=== PATIENT | male | born 1985 | race Caucasian/White ===

== ENCOUNTER 2020-08-06 08:23 | Inpatient (IN) | payer MEDICAID ==
[2020-07-31 16:06] LABS: BASOPHILS % (AUTO) 0.5 % (0-1); EOSINOPHILS # (AUTO) 0.1 X10'3 (0-0.9); LYMPHOCYTES # (AUTO) 1.7 X10'3 (1.1-4.8); LYMPHOCYTES % (AUTO) 24.8 % (21-51); MEAN CORPUSCULAR HEMOGLOBIN 24.4 PG (27.0-31.0); MEAN CORPUSCULAR HGB CONC 31.8 g/dL (33.0-36.5); MEAN CORPUSCULAR VOLUME 76.5 FL (78-98); MEAN PLATELET VOLUME 7.9 FL (7.4-10.4); MONOCYTES # (AUTO) 0.5 X10'3 (0-0.9); NEUTROPHILS # (AUTO) 4.6 X10'3 (1.8-7.7); NEUTROPHILS % (AUTO) 65.7 % (42-75); PRE OP HEMATOCRIT 34.8 % (42.0-52.0); PRE OP HEMOGLOBIN 11.1 g/dL (14.0-17.9); PRE OP PLATELET COUNT 271 X10'3 (140-440); RED BLOOD COUNT 4.55 X10'6 (4.70-6.10); RED CELL DISTRIBUTION WIDTH 15.9 % (11.5-14.5)
[2020-07-31 16:16] LABS: ALBUMIN 3.9 G/DL (3.4-5.0); ALBUMIN/GLOBULIN RATIO 1.1 (1.1-1.5); ALKALINE PHOSPHATASE 68 IU/L (46-116); BLOOD UREA NITROGEN 22 MG/DL (7-18); BUN/CREATININE RATIO 23.7 (5.4-32.0); CHLORIDE 106 MMOL/L (99-107); CREATININE 0.93 MG/DL (0.60-1.10); PRE OP ALT 26 U/L (30-65); PRE OP ANION GAP 8 (8-16); PRE OP AST 17 U/L (10-37); PRE OP BILIRUB, TOTAL 0.3 MG/DL (0.0-1.0); PRE OP GLUCOSE 84 MG/DL (70-104); PRE OP SODIUM 143 MMOL/L (135-145); TOTAL PROTEIN 7.3 G/DL (6.4-8.2); eGFR > 90 ML/MIN
[~2020-08-06] VITALS: Ht 180.3 cm; Wt 73.7 kg
[2020-08-06] VITALS (29 sets, daily range): BP systolic 108–144; BP diastolic 53–90
[~2020-08-06 08:23] MED LIST: BUPIVAcaine/PF 2.5 mg/ml (0.25%) 30ml vial ONE; ESOM40CA54 PO; LIDOcaine 1% 30ml preserv. free vial ONE; MELO-102 PO; METH20CP12 PO; SERT-432 PO; ceFAZolin 2gm in dextrose, iso 50 ML IV ONE; famotidine 20mg tablet PO ONE; ringers solution, lacted 1,000 ML IV SCH
[2020-08-06] MEDS ORDERED: sevoflurane 250ml liquid IH ONE (10:26)
[2020-08-06] MEDS ORDERED: midazolam 1 mg/ML 2ml injection ONE ×2 (10:29)
[2020-08-06] MEDS ORDERED: fentaNYL /PF 50mcg/ml 5ml ampule ONE (10:29)
[2020-08-06] MEDS ORDERED: rocuronium 10mg/ml inj IV ONE (10:29)
[2020-08-06] MEDS ORDERED: propofol inj 20 ML IV ONE (10:29)
[2020-08-06] MEDS ORDERED: dexamethasone sod phosphate 4mg/ml inj. ONE (11:04)
[2020-08-06] MEDS ORDERED: ondansetron/PF 4mg/2ml inj IV PRN ×2 (11:25→12:50)
[2020-08-06] MEDS ORDERED: ringers solution, lacted 1,000 ML IV SCH (11:25)
[2020-08-06] MEDS ORDERED: proCHLORperazine 10 MG/2 ml inj IV PRN (11:25)
[2020-08-06] MEDS ORDERED: meperidine/PF 25mg/ml syringe IV PRN ×2 (11:25)
[2020-08-06] MEDS ORDERED: morphine 2 MG/ML inj. syringe IV PRN (11:25)
[2020-08-06] MEDS ORDERED: morphine 4 MG/ML inj SYRINge IV PRN (11:25)
[2020-08-06] MEDS ORDERED: glycopyrrolate 0.2mg/ml inj ONE (12:27)
[2020-08-06] MEDS ORDERED: neostigmine methylsulfate 1 MG/ML 10ml vial ONE (12:27)
[2020-08-06] MEDS ORDERED: ondansetron/PF 4mg/2ml inj ONE (12:28)
[2020-08-06] MEDS ORDERED: HYDROcodone/acetaminophen 5mg/325mg tablet PO PRN (12:50)
[2020-08-06] MEDS: Potassium Cl inj 20 MEQ in ringers solution, lacted 1,000 ML IV SCH ×2 (12:50→22:39)
[2020-08-06] MEDS ORDERED: HYDROcodone/acetaminophen 10/325mg tab PO PRN (12:50)
[2020-08-06] MEDS: meperidine/PF 25mg/ml syringe IV PRN ×3 (12:53→14:52)
--- NOTE | 2020-08-06 14:04 | NUR ---
PT CO PAIN IN ABDOMEN AND SHOULDERS. MED WITH DEMEROL WITH EXCELLENT RESULTS. VSS, IV PATENT. NO RESP DISTRESS. ABD SOFT, TROCAR SITES FREE OF BLEEDING.
--- NOTE | 2020-08-06 15:24 | NUR ---
Report called to receiving nurse. Transferred via BED, 1 BAG OF Belongings SENT W/PT TO ROOM 344A, RECEIVING RN AT BEDSIDE TO RECEIVE PT. Special Issues communicated to receiving nurse. YES. Addendum: 08/06/20 at 1537 by Lauren Paniagua RN Amended: Links added.
--- NOTE | 2020-08-06 18:10 | NUR ---
Gave report to ARLENE Reardon.
--- NOTE | 2020-08-06 18:59 | NUR ---
Patient in room [facility]. I have received report from LILIA JACOBS and had the opportunity to ask questions and assume patient care. Patient awake and declines having pain.
[2020-08-07] VITALS: BP 120/75
[2020-08-07 04:00] VITALS: BP 117/72
[2020-08-07] MEDS: Potassium Cl inj 20 MEQ in ringers solution, lacted 1,000 ML IV SCH (05:19)
--- NOTE | 2020-08-07 06:26 | NUR ---
Problems reprioritized. Patient report given, questions answered & plan of care reviewed with CJ JACOBS.
--- NOTE | 2020-08-07 06:49 | NUR ---
Patient in room [facility]. I have received report from ARLENE Reardon and had the opportunity to ask questions and assume patient care.
[2020-08-07 08:00] VITALS: BP 106/62
[2020-08-07] MEDS ORDERED: sertraline 25mg tablet PO SCH (08:00)
[2020-08-07 12:00] VITALS: BP 100/61
--- NOTE | 2020-08-07 13:41 | NUR ---
Nutrition consult s/p Kunal. Patient visited at bedside and provided with written handout re: post Kunal diet including information for following full liquid diet post op followed by pureed and low fiber. Patient's questions answered and verbalized understanding. Addendum: 08/07/20 at [address] Amended: Links added.
--- NOTE | 2020-08-07 17:04 | NUR ---
Pt discharge in stable condition. Discharge and follow up instructions given to pt. IV removed. Pt was escorted to main lobby on w/c. Left the hospital via private vehicle accompanied by family member.
== END 2020-08-07 15:19 | disposition home or self-care (01) | DRG 220 ==
LOC: PAS 08:23 → EDSTATUS 12:45 → SUR 3N 12:48 → UNDOADMIN 16:52 → UNDODISIN 08-07 15:19
PROVIDERS: ADMIT Surgery; ATTEND Surgery
PROC: 8E0W4CZ Robotic Assisted Procedure of Trunk Region, Percutaneous Endoscopic Approach (ICD-10-PCS; 2020-08-06)
PROC: 0DQ44ZZ Repair Esophagogastric Junction, Percutaneous Endoscopic Approach (ICD-10-PCS; 2020-08-06)
PROC: 0BQT4ZZ Repair Diaphragm, Percutaneous Endoscopic Approach (ICD-10-PCS; principal; 2020-08-06 10:26)
DX: K44.9 Diaphragmatic hernia without obstruction or gangrene (principal); Z79.899 Other long term (current) drug therapy
CPT/HCPCS: 36415; 71045; 74220; 80053; 82948; 85025; 86885; 86900; 86901; 87081; 87635; 93005; A4215; A4618; G0378; J1100; J2001; J2175; J2250; J2405; J2704; J2710; J3010; J3480; J3490; J7120